=== PATIENT | male | born 1940 | race Caucasian/White ===

== ENCOUNTER 2017-02-27 10:40 | Emergency (ER) | payer MEDICARE, OTHER ==
[2017-02-27 14:29] LABS: HEMOGLOBIN 13.2 gm/dl (14.0-17.5); RED BLOOD COUNT 4.14 M/UL (4.20-5.50); WHITE BLOOD COUNT 12.5 K/UL (4.5-11.0)
[2017-02-27 15:43] LABS: BUN/CREATININE RATIO 29 (0-10)
== END 2017-02-28 01:15 | disposition short-term general hospital (02) ==
LOC: ER1 10:40
PROVIDERS: Physician Assistant
DX: S32.501A Unspecified fracture of right pubis, initial encounter for closed fracture (principal); S22.089A Unspecified fracture of T11-T12 vertebra, initial encounter for closed fracture; S50.812A Abrasion of left forearm, initial encounter; J44.9 Chronic obstructive pulmonary disease, unspecified; J43.9 Emphysema, unspecified; Z85.118 Personal history of other malignant neoplasm of bronchus and lung; Z87.891 Personal history of nicotine dependence; W11.XXXA Fall on and from ladder, initial encounter
CPT/HCPCS: 36415; 70450; 71010; 72125; 72128; 72131; 73502; 80053; 82550; 82553; 83690; 83874; 84484; 85025; 85610; 85730; 93005; 96361; 96374; 96375; 96376; 99285; J2270; J2405

== ENCOUNTER → 2021-02-14 | Outpatient (CLI) | payer MEDICARE, SELFPAY, OTHER ==
[~2021-02-14] MED LIST: ADVIL PM CAPLE1 EACH PO; AZITHROMYCIN250 MG PO; BENZONATATE100 MG PO; DIAZEPAM5 MG PO; HYDROCODON-ACE1 EAC6 PO; IPRAT-ALBUT 0.5-3 ML NEB; METOPROLOL TART50 MG PO; PREDNISONE 10 M10 MG PO; SPIRIVA HANDIH18 MCG INH; SYMBICORT 160-1 INHA INH; VIT B12 PO
[2021-02-14 14:07] LABS: HEMOGLOBIN 8.4 gm/dl (14.0-17.5); RED BLOOD COUNT 3.44 M/UL (4.20-5.50); WHITE BLOOD COUNT 10.7 K/UL (4.5-11.0)
== END ==
LOC: LAB 12:46
PROVIDERS: Family Medicine
DX: D64.9 Anemia, unspecified (principal); E78.5 Hyperlipidemia, unspecified; R53.83 Other fatigue; I10 Essential (primary) hypertension; Z12.5 Encounter for screening for malignant neoplasm of prostate; E55.9 Vitamin D deficiency, unspecified
CPT/HCPCS: 36415; 80053; 80061; 83540; 83550; 84439; 84443; 84481; 85027; G0103

== ENCOUNTER 2021-03-02 11:23 | Emergency (ER) | payer MEDICARE, SELFPAY, OTHER ==
[2021-03-02 12:48] LABS: HEMOGLOBIN 8.3 gm/dl (14.0-17.5); RED BLOOD COUNT 3.39 M/UL (4.20-5.50); WHITE BLOOD COUNT 6.4 K/UL (4.5-11.0)
[2021-03-02 13:14] LABS: BUN/CREATININE RATIO 21 (0-10)
== END 2021-03-02 14:54 | disposition home or self-care (01) ==
LOC: ER1 11:23
PROVIDERS: Emergency Medicine
DX: D64.9 Anemia, unspecified (principal); M54.9 Dorsalgia, unspecified; G89.29 Other chronic pain; I10 Essential (primary) hypertension
CPT/HCPCS: 72100; 80053; 82272; 82550; 82553; 83874; 84484; 85025; 99284

== ENCOUNTER → 2021-08-07 | Outpatient (CLI) | payer MEDICARE ==
[2021-08-07 17:00] LABS: BUN/CREATININE RATIO 25 (0-10)
== END ==
LOC: LAB 15:59
PROVIDERS: Family Medicine
DX: E78.5 Hyperlipidemia, unspecified (principal); E55.9 Vitamin D deficiency, unspecified; I10 Essential (primary) hypertension
CPT/HCPCS: 36415; 80053; 80061; 84439; 84443

== ENCOUNTER → 2022-04-19 | Outpatient (CLI) | payer MEDICARE ==
[2022-04-19 12:33] LABS: HEMOGLOBIN 13.1 gm/dl (14.0-17.5); RED BLOOD COUNT 3.97 M/UL (4.20-5.50); WHITE BLOOD COUNT 11.3 K/UL (4.5-11.0)
[2022-04-19 12:56] LABS: BUN/CREATININE RATIO 29 (0-10)
== END ==
LOC: LAB 11:16
PROVIDERS: Family Medicine
DX: E78.5 Hyperlipidemia, unspecified (principal); I10 Essential (primary) hypertension; E55.9 Vitamin D deficiency, unspecified; D50.9 Iron deficiency anemia, unspecified; Z79.899 Other long term (current) drug therapy
CPT/HCPCS: 36415; 80053; 80061; 80307; 82607; 82728; 83540; 83550; 83735; 85025; 85045